=== PATIENT | male | born 1960 | race Caucasian/White ===

== ENCOUNTER → 2019-09-11 08:46 | Outpatient (BNVA) | payer BC, SELFPAY | PROVIDERS: Family Provider Nurse Practitioner; PCP Nurse Practitioner; Visit Provider Nurse Practitioner | DX: N20.0 Calculus of kidney (principal) | CPT/HCPCS: 74018; 81003 ==

== ENCOUNTER → 2019-11-05 11:00 | Outpatient (BNVA) | payer BC, SELFPAY | PROVIDERS: Family Provider Nurse Practitioner; PCP Nurse Practitioner; Visit Provider Nurse Practitioner | DX: N39.0 Urinary tract infection, site not specified (principal); R30.9 Painful micturition, unspecified; R30.0 Dysuria; R50.9 Fever, unspecified | CPT/HCPCS: 80053; 81000; 87081; 87400; 87880 ==

== ENCOUNTER 2019-11-15 23:54 | Observation (INO) | payer BC, SELFPAY ==
--- NOTE | 2019-11-15 22:18 | P.HP_ITS ---
Providers/Chief Complaint Admitting Physician: Ben Olmstead MD Primary Care Provider: Chiara Berrios APN Chief Complaint: GI Bleed & Melanotic Stool History of Present Illness Tim Peters is a 58 year old male who does not carry any significant past medical history went to [facility] for chief complaint of black tarry stool. He is stating that about a month ago he was treated for UTI with Bactrim, he has finished that course, he was in his usual state of health until this when he started noticing black/dark stools, regular consistency without diarrhea, he tried to change his diet but he kept noticing black stools, on Sunday he started experiencing dry heaves, excessive retching, noticed dark-colored emesis as well, cold sweats, he felt weak and lethargic and dizzy. Patient is stating that every time he was flushing his stools he would see fresh blood coming out of his dark stools. And he describes his hematemesis as gelatinous coffee-ground emesis. He has never experienced these kind of symptoms before, no history of hepatitis, peptic ulcer disease, he does not drink alcohol, does not use aspirin on daily basis, colonoscopy at age 48 was unremarkable as per the patient. No family history of colon cancer. Endorsing history of internal hemorrhoids. Diagnostics in the ER revealed sinus tachycardia heart rate 108, Blood pressure 110/77, patient afebrile, saturating well on room air White count 7 Hemoglobin 11.6 Platelets 411 Sodium 134 Potassium 4.1 Chloride 99 CO2 24 Calcium 8.7 BUN 27 Creatinine 0.8 AST 22 ALT 26 FOBT positive INR 1.0 PT 13.4 PTT 29.5 Magnesium 2.0 Lipase 32 Urinalysis unremarkable Chest x-ray unremarkable KUB: Nonspecific bowel gas pattern Review of Systems Const: Reports: fatigue; Denies: chills, body aches, change in appetite or malaise Eyes: Denies: change in vision ENMT: Denies: throat pain Card: Denies: chest pain, palpitations or irregular heart rhythm Resp: Denies: shortness of breath GI: Reports: abdominal pain, nausea, vomiting, vomiting blood, heartburn/indigestion and blood in stool; Denies: diarrhea or constipation : Denies: flank pain, difficulty urinating or urinary frequency Musc: Denies: neck pain Skin/Breast: Denies: rash or itching Neuro: Denies: headache Psych: Denies: anxiety or depression Endo: Denies: excessive urination Angus/Lymph: Denies: easy bruising All/Imm: Denies: hives Medications/Allergies Allergies Allergy/AdvReac Type Severity Reaction Status Date / Time tetanus and diphtheria Allergy high fever Verified 11/05/19 08:27 toxoids PFSH Acute PFSH: Medical History (Updated 11/16/19 @ 00:56 by Ben Olmstead MD) Amputation of finger Branchial cleft cyst Internal hemorrhoids Neck mass Normal colonoscopy Spondylolysis C6-C7 spondylosis Surgical History (Updated 11/15/19 @ 22:22 by Ben Olmstead MD) Status post excisional biopsy Family History (Updated 11/16/19 @ 00:56 by Ben Olmstead MD) Family/Other Cancer Mother had uterine cancer, father had bladder cancer, Social History (Updated 11/16/19 @ 00:57 by Ben Olmstead MD) Smoking and tobacco status: former smoker Quit status (tobacco): has quit using tobacco Former quit date comment: Quit smoking and smokeless tobacco 33 years ago, Alcohol intake: never Substance/Drug Use: never Household members: spouse and family Housing: House Physical Exam Narrative: EXAM NARRATIVE: Pleasant male sitting at the bedside without any active distress S1, S2 no signs of tachycardia heart failure Lungs are clear to auscultation Abdomen soft, nontender, nondistended, bowel sound present in all quadrants, no CVA tenderness EOMI, PERRLA No pallor or cyanosis or jaundice noticed Appropriate mood and affect No lower extremity edema ischemia gangrene or ulcer Neurologically nonfocal exam 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 fib no previous history of abnormal colonoscopy N.p.o. discontinue multivitamins Protonix IV 40 mg twice a day CBC in the morning, currently hemodynamically stable, no dehydration or orthostasis I would continue dextrose LR maintenance rate No urgent need of endoscopy or colonoscopy, would hold off on consulting general surgery at this point Kindly reevaluate in the morning Hematemesis after multiple episodes of dry heaves and retching Would keep Nadine-Hu tear in my differentials, no active hematemesis Liver enzymes not abnormal Nonalcoholic DVT prophylaxis: SCDs avoid anticoagulation N.p.o. Full code Attestations Medical Necessity Statement*: Anticipating discharge in less than 48 hours if hemoglobin stays stable currently needs monitoring for Hemoccult positive stool and hematemesis Time Spent in Patient Care: 50 Coding Level of Care Code Acute Customer Pricing Manager for Isabelle Millan Diagnoses Melanotic stools K92.1 Hematemesis K92.0
[2019-11-15 23:56] VITALS: BMI 30.5
--- NOTE | 2019-11-16 00:40 | CTR_ITS ---
PROCEDURE INFORMATION: Exam: CT Abdomen With Contrast Exam date and time: 11/16/2019 1:00 AM Age: 58 years old Clinical indication: Other: Blood in stool; Prior surgery; Surgery date: 6+ months; Surgery type: Appy; Additional info: Balck stool TECHNIQUE: Imaging protocol: Computed tomography images of the abdomen with intravenous contrast. Total DLP: 999.56 mGy-cm Radiation optimization: All CT scans at this facility use at least one of these dose optimization techniques: automated exposure control; mA and/or kV adjustment per patient size (includes targeted exams where dose is matched to clinical indication); or iterative reconstruction. Contrast material: OMNI 300; Contrast volume: 95 ml; Contrast route: IV; COMPARISON: No relevant prior studies available. FINDINGS: Liver: Normal. No mass. Gallbladder and bile ducts: Normal. No calcified stones. No ductal dilation. Pancreas: Normal. No ductal dilation. Spleen: Normal. No splenomegaly. Adrenals: Normal. No mass. Kidneys and ureters: A 3.8 mm nonobstructing calculus is seen within the left kidney. Stomach and bowel: There is a [place] configuration of the hepatic flexure of the colon. Diverticula are seen on the sigmoid colon. There are no inflammatory changes present to suggest diverticulitis. Appendix: Status post appendectomy. Intraperitoneal space: Unremarkable. No free air. No significant fluid collection. Lymph nodes: Unremarkable. No enlarged lymph nodes. Vasculature: Unremarkable. No abdominal aortic aneurysm. Bones/joints: Benign-appearing vertebral body hemangioma within L2. Soft tissues: Unremarkable. CT/CT abdomen w con* [id number] IMPRESSION: 1. Diverticulosis of the sigmoid colon without evidence of diverticulitis 2. [place] configuration of the hepatic flexure of the colon 3. Nonobstructing 3.8 mm left renal calculus Radiation Dose CTDIVOL = (mGy): DLP = 999.56 (mGy-cm)
[2019-11-16 00:47] VITALS: BP 105/68; PULSE 74; RESP 18; TEMP 37.2; O2SAT 98
[2019-11-16] MEDS: dextrose 5%-sod chloride 0.45% 1,000 ML 75 ML IV ×2 (00:49→13:51)
[2019-11-16] MEDS: pantoprazole 40 mg SDV IVP ×3 (00:49→23:53)
[2019-11-16] MEDS: iohexol 300 mg/mL 100 mL Btl IV (01:01)
[2019-11-16 04:00] VITALS: BP 112/65; PULSE 71; RESP 20; TEMP 36.5; O2SAT 98
[2019-11-16 05:34] LABS: Hematocrit 28.6 % (42.0-52.0); Hemoglobin 9.7 g/dL (11.7-16.6); Lymphocytes # 2.5 10^3/uL (0.8-4.8); Lymphocytes % 50.8 %; Mean Corpuscular HGB Conc 33.9 g/dL (30.0-36.0); Mean Corpuscular Hemoglobin 31.1 pg (28.0-34.0); Mean Corpuscular Volume 91.7 fL (80-94); Mean Platelet Volume 8.6 fL (7.4-10.4); Monocytes # 0.6 10^3/uL (0.2-0.9); Monocytes % 11.2 %; Neutrophils # 1.9 10^3/uL (1.8-7.7); Neutrophils % 37.8 %; Nucleated Red Blood Cells % 0 %; Platelet Count 303 10^3/cmm (130-400); Positive M 1; Red Blood Count 3.12 10^6/uL (4.1-5.3); Red Cell Distribution Width 12.1 % (12.1-15.1); White Blood Count 4.9 10^3/uL (4.0-10.0)
[2019-11-16 05:56] LABS: Lactic Acid level (Lactate) 0.9 mmol/L (0.5-2.2)
[2019-11-16 05:58] LABS: Anion Gap 11.7 (5-19); Blood Urea Nitrogen 19 mg/dL (8-23); Calcium 8.2 mg/dL (8.5-10.5); Carbon Dioxide 25 mmol/L (22-29); Chloride 103 mmol/L (98-107); Glomerular Filtration Rate 86.1 mL/min (90-130); Glucose 112 mg/dL (65-115); Osmolality Calculated 279 mOsm/kg (285-295); Potassium 3.7 mmol/L (3.5-5.1); Sodium 136 mmol/L (136-145)
[2019-11-16 06:24] LABS: Slide Review Slide Review Perform
[2019-11-16 08:00] VITALS: BP 114/75; PULSE 73; RESP 16; TEMP 36.6; O2SAT 98
[2019-11-16 11:28] VITALS: BP 112/13; PULSE 76; RESP 16; TEMP 36.9; O2SAT 98
--- NOTE | 2019-11-16 11:32 | PM.PN ---
Subjective Subjective: Interval history: last black stool early this morning. No episodes of hematemesis. Hb trend 9.7<--11.6 (4/4) <--baseline 15 from 08/2019 Medications: Reviewed: Yes Vitals/I&O/Wt Last Vital Signs Temp 98.5 F 11/16/19 11:28 Pulse 76 11/16/19 11:28 Resp 16 11/16/19 11:28 BP 112/13 11/16/19 11:28 Pulse Ox 98 11/16/19 11:28 11/15/19 11/16/19 11/16/19 22:59 06:59 14:59 Output Total 600 / 600 Balance -600 / -600 Weight last 48 hrs Weight 91.172 kg Physical Exam Narrative: EXAM NARRATIVE: GEN: Awake, alert and oriented, no acute distress CVS: S1S2 N RS: CTA B/L Abd: Soft, nt/nd , bs+ PIANO REFINISHER: no focal neuro deficits Data : 11/16/19 05:26 11/16/19 05:26 A&P Assessment and plan (1) Hematemesis: Status: Acute (2) Melanotic stools: Status: Acute (3) Anemia: Status: Acute Additional A&P Information # UGI bleed Last oniel early this morning no further hematemesis CT abdomen without any acute colitis Cdiff ordered due to Hb drop, Gen/surg consulted to assess for endoscopy Recent h/o being treated for UTI based on symptoms of dysuria, fever resolved within 2 days. However patient's UA from the time without evidence of infection. Per his PCP's note patient had URI symptoms at the time as well , flu and strep were negative then. He was not tested for COVID 19. Patient has no current URI symptoms and fever has resolved, therefore do not suspect active infection, however if previously had COVID, there is still potential for asymptomatic shedding at this time. While would not have ordinarily tested in this situation, given that he is under consideration for endoscopy and there is risk for aerosolization with upper airway procedures, will screen prior to procedure. Continue Protonix IV 40 mg twice a day monitor Hb and BP, reports some orthostasis DVT prophylaxis: SCDs avoid anticoagulation N.p.o. Full code Attestations Medical Necessity Statement*: needs close monitoring for management of UGI bleed Coding Level of Care Code Acute Sanitation Associate for g Fwd Diagnoses Hematemesis K92.0 Melanotic stools K92.1 Anemia D64.9
[2019-11-16 16:00] VITALS: BP 114/67; PULSE 76; RESP 18; TEMP 36.7; O2SAT 97
[2019-11-16 19:45] VITALS: BP 107/71; PULSE 72; RESP 18; TEMP 36.6; O2SAT 99
[2019-11-17] VITALS: BP 109/65; PULSE 70; RESP 17; TEMP 36.3; O2SAT 99
[2019-11-17] MEDS: dextrose 5%-sod chloride 0.45% 1,000 ML 75 ML IV (03:55)
[2019-11-17 04:00] VITALS: BP 102/65; PULSE 67; RESP 17; TEMP 36.5; O2SAT 98
[2019-11-17 07:47] VITALS: BP 111/65; PULSE 70; RESP 17; TEMP 36.4; O2SAT 98
[2019-11-17 08:00] LABS: Hematocrit 27.3 % (42.0-52.0); Hemoglobin 9.2 g/dL (11.7-16.6); Lymphocytes # 2.2 10^3/uL (0.8-4.8); Lymphocytes % 43.2 %; Mean Corpuscular HGB Conc 33.7 g/dL (30.0-36.0); Mean Corpuscular Hemoglobin 30.9 pg (28.0-34.0); Mean Corpuscular Volume 91.6 fL (80-94); Mean Platelet Volume 8.9 fL (7.4-10.4); Monocytes # 0.4 10^3/uL (0.2-0.9); Monocytes % 8.5 %; Neutrophils # 2.4 10^3/uL (1.8-7.7); Neutrophils % 47.3 %; Nucleated Red Blood Cells % 0 %; Platelet Count 352 10^3/cmm (130-400); Red Blood Count 2.98 10^6/uL (4.1-5.3); Red Cell Distribution Width 12.1 % (12.1-15.1); White Blood Count 5.1 10^3/uL (4.0-10.0)
[2019-11-17 08:16] LABS: Blood Urea Nitrogen 10 mg/dL (8-23); Calcium 8.2 mg/dL (8.5-10.5); Carbon Dioxide 25 mmol/L (22-29); Chloride 105 mmol/L (98-107); Glucose 110 mg/dL (65-115); Osmolality Calculated 283 mOsm/kg (285-295); Sodium 138 mmol/L (136-145)
[2019-11-17] MEDS: pantoprazole 40 mg SDV IVP (10:28)
[2019-11-17 10:33] VITALS: BP 103/68; BP 106/64; BP 110/68; PULSE 69; PULSE 80; PULSE 81
--- NOTE | 2019-11-17 11:32 | PM.DCS ---
Discharge Providers Date of Admission: 11/15/19 23:54 Date of Discharge: November 17, 2019 Attending Provider at Admission: Ben Olmstead MD Attending Provider at Discharge: Aliec Bear MD Primary Care Provider: Chiara Berrios APN Diagnoses at Discharge Discharge Diagnosis (1) Hematemesis: Status: Resolved (2) Melanotic stools: Status: Resolved (3) Anemia: Status: Resolved Reason for Visit Reason for Visit: Reason For Visit: GI Bleed & Melanotic Stool Hospital Course Discharge Summary: This is a 58-year-old male with no significant past medical history who presents the emergency room due to concerns for black tarry stools, and dark-colored emesis, with a negative colonoscopy at age 48, no family history of colon cancer, does have a history of internal hemorrhoids, no alcohol drinking, no aspirin use, but had received Toradol. Patient was admitted for upper GI bleed and melanotic stools, received IV hydration, IV Protonix, his hemoglobin did trend down from 15 to 9.2, his hemoglobin remained stable at 9.2, 24 hours before discharge, he did not have any more melanotic stools, nor did he have hematemesis or dark-colored vomit, he was doing well. Patient was discharged on Protonix 40 twice daily, with instructions to drink plenty of electrolyte balance fluids, avoid aspirin, avoid NSAIDs. The case was discussed with Dr. Delgado from surgery, who will plan on doing an elective endoscopy and colonoscopy in 6 weeks. Patient was instructed that if he were to feel lightheaded, dizzy, and/or recurrent melanotic stools or hematemesis or dark vomit come back to the emergency room. Patient also had COVID testing on admission due to concerns for recent history of upper respiratory tract infection, which was negative Patient also endorses that he recently was treated for urinary tract infection. His CT scan did show a nonobstructive 3.8 mm left renal colliculus.I advised patient that he does have a risk of passing this kidney stone, to monitor his urine output, urinary symptoms. I advised patient that if he were to develop another urinary tract infection, he should follow-up with his regular physician for a consideration for nephrolithiasis, and consideration for BPH and/or prostatitis as a source of his recurrent UTIs. Physical Exam Const: COMMON NORMALS: no apparent distress and oriented x3 HENMT: COMMON NORMALS: normocephalic HEAD & SCALP: normocephalic Neck/C-Spine: COMMON NORMALS: no JVD Resp: COMMON NORMALS: normal respiratory effort, no retractions, no use of accessory muscles and clear to auscultation bilaterally AUSCULTATION: clear to auscultation bilaterally Cardio: COMMON NORMALS: no JVD, regular rate, regular rhythm, S1 normal heart sound and S2 normal heart sound RATE: regular rate RHYTHM: regular rhythm HEART SOUNDS: S1 normal and S2 normal GI: COMMON NORMALS: normal to inspection, nondistended, normoactive bowel sounds, soft to palpation, non-tender, no hepatosplenomegaly, no masses and no bruits PALPATION: Yes soft and Yes no hepatosplenomegaly Extremity: COMMON NORMALS: normal capillary refill, no clubbing, cyanosis or edema, no calf tenderness and no pedal edema Neuro: COMMON NORMALS: oriented x3 Psych: COMMON NORMALS: mental status grossly normal Discharge Data Data Completed and Pending: Completed Studies During Hospitalization Category Date Time Status CT abdomen w con* [id number] Urgent Cat Scan 11/16/19 00:40 Completed Labs from last 24 hours 11/17/19 11/17/19 07:30 07:30 WBC 5.1 RBC 2.98 L Hgb 9.2 L Hct 27.3 L MCV 91.6 MCH 30.9 MCHC 33.7 RDW 12.1 Plt Count 352 MPV 8.9 Neut % (Auto) 47.3 Lymph % (Auto) 43.2 [place] % (Auto) 8.5 Eos % (Auto) 0.0 Baso % (Auto) 0.0 Neut # (Auto) 2.4 Lymph # (Auto) 2.2 [place] # (Auto) 0.4 Eos # (Auto) 0.0 Baso # (Auto) 0.0 Nucleated RBC % (a uto) 0 Nucleated RBCs # 0.0 Sodium 138 Potassium 4.0 Chloride 105 Carbon Dioxide 25 Anion Gap 12.0 BUN 10 Creatinine 0.7 GFR Calculation 115.0 Glucose 110 Calculated Osmolal ity 283 L Calcium 8.2 L Vitals: Last Vital Signs Temp 97.5 F L 11/17/19 07:47 Pulse 69 11/17/19 10:33 Resp 17 11/17/19 07:47 BP 106/64 11/17/19 10:33 Pulse Ox 98 11/17/19 07:47 Discharge Plan Discharge Patient Disposition: Home, Self-Care Condition: Stable Prescriptions: New Protonix 40 mg tablet,delayed release (DR/EC) 40 mg PO BID 30 Days Qty: 60 RF: 0 Continued multivitamin Tablet 1 tab PO QDAY RF: 0 ascorbic acid (vitamin C) 500 mg tablet 500 mg PO QDAY RF: 0 Discontinued ketorolac 30 mg/mL solution 60 mg IM ONCE Qty: 2 RF: 0 No Action Metamucil (sugar) Powder 1 tbsp PO BID RF: 0 Discharge Orders: Discharge Order (Routine); Ordered 11/17/19 Ordered By: Jovanny Fuentes Referrals: Rian Delgado MD [Physician] - 1 month (to schedule EGD/colon) Discharge Diet: GI Soft Discharge Activity: Resume usual activity Patient Instructions: Pantoprazole (By mouth), GI Bleeding, Gastrointestinal Bleeding (DC), Gastrointestinal Bleeding (GEN), Rectal Bleeding (DC), Rectal Bleeding (GEN), Iron Rich Diet (DC), Anemia (DC) Activity Restrictions/Additional Instructions: -Please use Protonix as prescribed for GI bleed -Please hydrate very well with electrolyte balance fluids such as Gatorade -Please avoid all nonsteroidal anti-inflammatory drugs such as ketorolac, aspirin, Aleve, naproxen etc. -Follow-up with Dr. Delgado in 2 weeks Discharge Date/Time: 11/17/19 16:59 Discharge Attestations Time Spent in Discharge Care*: less than 30 min Quality Metrics Clinical Quality Measures During this hospital stay, did patient experience: None Coding Level of Care Code Acute Avionics Engineer for g Fwd Exam Comprehensive Diagnoses Hematemesis K92.0 Melanotic stools K92.1 Anemia D64.9
[2019-11-17 12:00] VITALS: BP 112/68; PULSE 74; RESP 17; TEMP 36.5; O2SAT 98
[2019-11-17 12:12] LABS: INR 1.06 (0.8-1.2)
[2019-11-17 12:15] LABS: Alanine Aminotransferase 19 U/L (0-41); Albumin Level 3.5 g/dL (3.5-5.2); Alkaline Phosphatase 36 IU/L (40-130); Aspartate Amino Transferase 19 U/L (0-40); Globulin 2.6 g/dL (1.3-4.6); Total Bilirubin 0.2 mg/dL (0.15-1.2); Total Protein 6.1 g/dL (6.6-8.7)
--- NOTE | 2019-11-17 14:09 | P.CONIM_ITS ---
Providers/Reason For Consult Consulting Physican/Specialty*: Alice Bear MD Reason for Consult*: Melena Attending Physician: Alice Bear MD Primary Care Provider: Chiara Berrios APN History of Present Illness History of Present Illness Tim Peters is a 58 year old male who presented to the ER with 3-day history of black stools. Patient denies any abdominal pain nausea vomiting constipation or diarrhea. No similar episodes in the past. No history of peptic ulcer disease. His last colonoscopy was 10 years ago which was normal and is due for one this year. Patient states that the day before he presented to the ER he noticed fresh blood in stools. He states that since yesterday has not had any further episodes. He had recently been diagnosed with a UTI Review of Systems General: Reports: 10 or more systems reviewed and unremarkable except in HPI and below Meds/Allergies Home Medications and Allergies Home Medications Medication Instructions Recorded Confirmed Type ascorbic acid (vitamin C) 500 mg 500 mg PO QDAY 09/11/19 11/05/19 History tablet multivitamin 1 tab PO QDAY 09/11/19 11/05/19 History tamsulosin 0.4 mg capsule 0.4 mg PO QDAY #14 cap 09/11/19 11/05/19 Rx pantoprazole [Protonix] 40 mg PO BID 30 Days #60 tab 11/17/19 Rx Allergies Allergy/AdvReac Type Severity Reaction Status Date / Time tetanus and diphtheria Allergy high fever Verified 11/05/19 08:27 toxoids Current Medications Current Medications Generic Name Dose Route Start Last Admin Trade Name Freq PRN Reason Stop Dose Admin Dextrose/Sodium Chloride 1,000 mls @ 75 mls/hr 11/15/19 23:45 11/17/19 03:55 Dextrose 5%-Sod Chloride 0.45% IV 75 mls/hr .[id number] KAYLIE Administration Pantoprazole Sodium 40 mg 11/15/19 23:45 11/17/19 10:28 Protonix IVP 40 mg Q12H KAYLIE Administration PFSH Acute PFSH: Medical History Amputation of finger Branchial cleft cyst Internal hemorrhoids Neck mass Normal colonoscopy Spondylolysis C6-C7 spondylosis Surgical History Status post excisional biopsy Family History Family/Other Cancer Mother had uterine cancer, father had bladder cancer, Social History Smoking and tobacco status: former smoker Quit status (tobacco): has quit using tobacco Former quit date comment: Quit smoking and smokeless tobacco 33 years ago, Alcohol intake: never Household members: spouse and family Housing: House Vitals/I&O/Wt Last Vital Signs Temp 97.7 F 11/17/19 12:00 Pulse 74 11/17/19 12:00 Resp 17 11/17/19 12:00 BP 112/68 11/17/19 12:00 Pulse Ox 98 11/17/19 12:00 11/16/19 11/17/19 11/17/19 22:59 06:59 14:59 Intake Total 1000 / 1977.5 480 / 480 Output Total 700 / 1300 701 / 701 Balance 300 / 677.5 -221 / -221 Weight last 48 hrs Weight 201 lb Physical Exam Narrative: EXAM NARRATIVE: HEENT: Normocephalic Eye: Sclera /conjunctiva normal Respiratory and chest: Bilateral clear breath sounds on auscultation Cardiovascular: Normal S1 and S2 heart sounds Abdomen: Soft to palpation Neurological: Oriented to place person and time Skin: Intact, no lesions appreciated on gross exam Data Micro: Micro: Microbiology 11/16/19 12:51 C.difficile Toxin B Gene (PCR) - Fin al Stool A&P Assessment and plan (1) Melanotic stools: 58-year-old gentleman with melanotic stools currently hemodynamically stable and his repeat hemoglobin has remained the same. Plan for discharge later today on Protonix. Follow-up 6 weeks to schedule EGD and colonoscopy. Status: Acute Coding Level of Care Code Acute Entertainment Lawyer for Chg Fwd Diagnoses Melanotic stools K92.1
[2019-11-17 14:23] LABS: Coronavirus Lab Test PTC NOT DETECTED
[2019-11-17 14:35] VITALS: BP 112/68; PULSE 74; RESP 17; TEMP 36.5; O2SAT 98
[2019-11-17 14:42] LABS: Hematocrit 27.3 % (42.0-52.0); Hemoglobin 9.2 g/dL (11.7-16.6)
--- NOTE | 2019-11-17 16:56 | PC.NURSE ---
DISCHARGE SUMMARY Patient was given discharge instructions. follow up appointments made. vitals within patients normals. patient alert and oriented. transferred home by . prescription for CBC sent with patient to be drawn at pcp office. iv discontinued. patient information sent home with patient.
== END 2019-11-17 16:59 | disposition home or self-care (01) ==
PROVIDERS: Family Medicine; Surgery; Admitting Provider Internal Medicine; Family Provider Nurse Practitioner; PCP Nurse Practitioner; Visit Provider Student in an Organized Health Care Education/Training Program
DX: K92.1 Melena (principal); K92.0 Hematemesis; D64.9 Anemia, unspecified; Z87.891 Personal history of nicotine dependence
CPT/HCPCS: 12345; 36415; 74160; 80048; 80076; 83605; 85014; 85018; 85025; 85610; 87493; 87635; 96360; 96361; 96375; C9113; G0378; G0379; J7799; Q9967

== ENCOUNTER → 2019-11-19 11:34 | Outpatient (BNVA) | payer BC, SELFPAY | PROVIDERS: Family Provider Nurse Practitioner; PCP Nurse Practitioner; Visit Provider Family Medicine | DX: D64.9 Anemia, unspecified (principal); K92.0 Hematemesis | CPT/HCPCS: 85025 ==

== ENCOUNTER 2019-12-16 06:24 | Day surgery (SDC) | payer BC, SELFPAY ==
[2019-12-15 09:05] VITALS: BMI 28.8
[2019-12-16 06:40] VITALS: BP 114/77; PULSE 68; RESP 18; TEMP 36.3; O2SAT 99
[2019-12-16] MEDS: sodium chloride 0.9% 1,000 ML 30 ML IV (06:54)
--- NOTE | 2019-12-16 07:04 | W.PM.OPSUD ---
Surgery/Procedure H&P Update DATE OF PROCEDURE: December 16, 2019 DATE H&P PERFORMED: 11/27/19 H&P UPDATE INFORMATION: I have reviewed H&P completed within last 30 days, I have examined patient prior to procedure and No changes to prior documentation PREOP DIAGNOSIS: Melena, screening PLANNED PROCEDURE: Operation Date: 12/16/19 08:05 Proposed Procedures p EGD 79953 D64.9(Not Applicable) - Rian Delgado MD s Colonoscopy 82475 K92.2(Not Applicable) - Rian Delgado MD
--- NOTE | 2019-12-16 07:14 | ANES.PREANE2 ---
Pre-Anesthetic Assessment Pre-Anesthetic Assessment: Height/Weight: Height 1.73 m Weight 86.183 kg Temp Pulse Resp BP Pulse Ox 97.3 F L 68 18 114/77 99 12/16/19 06:40 12/16/19 06:40 12/16/19 06:40 12/16/19 06:40 12/16/19 06:40 Preop Diagnosis: Melena, screening Proposed Procedure: Operation Date: 12/16/19 08:05 Proposed Procedures p EGD 76972 D64.9(Not Applicable) - Rian Delgado MD s Colonoscopy 52698 K92.2(Not Applicable) - Rian Delgado MD Last intake: Intake Last Liquid Date 12/15/19 Last Liquid Time 20:00 Last Solid Date 12/15/19 Last Solid Time 20:00 Social: Social History: No alcohol and No tobacco Comment: former smoker Exam: Pre-Anes Outpt Exam: alert, oriented x 3, clear to auscultation bilaterally and regular rate & rhythm Airway: Submandibular: WNL Cervical ROM: WNL MP: 3 History/ROS: No significant history except as noted GI: Comments: GI Bleed Anesthetic Plan: ASA status: 2 Anesthesia: Anesthesia Evaluation and MAC Risk of > 500 ml blood loss (7ml/kg in children): Yes, adequate IV access and fluids planned Meds/Allergies Current Medications: Current Medications Generic Name Dose Route Start Last Admin Trade Name Freq PRN Reason Stop Dose Admin Sodium Chloride 1,000 mls @ 30 ml s/hr 12/16/19 06:00 12/16/19 06:54 Sodium Chloride 0.9% IV 30 mls/hr .Q24H KAYLIE Administration PFSH Anesthesia PFSH: Social History Smoking and tobacco status: former smoker Quit status (tobacco): has quit using tobacco Former quit date comment: Quit smoking and smokeless tobacco 33 years ago, Alcohol intake: never Household members: spouse and family Housing: House History of recent travel: No Data Anesthesia Cardiac Studies: No Data to Display
[2019-12-16 08:33] VITALS: BP 109/72; PULSE 78; RESP 18; TEMP 36.3; O2SAT 97
[2019-12-16 08:48] VITALS: BP 133/89; PULSE 56; RESP 16; O2SAT 100
--- NOTE | 2019-12-16 08:59 | ANE.PACU2 ---
 Inpatient post-anesthesia follow up: Airway intact: Yes Vital signs: Temperature 97.3 F Pulse Rate 56 Respiratory Rate 16 Blood Pressure 133/89 Pulse Oximetry 100 Oxygen Delivery Me thod Room Air Oxygen Flow Rate Fraction of Inspir ed Oxygen Hydration adequate: Yes Nausea and vomiting: No Mental status: Baseline
== END 2019-12-16 09:09 | disposition home or self-care (01) ==
PROVIDERS: Family Provider Nurse Practitioner; PCP Nurse Practitioner; Visit Provider Surgery
PROC: 0DJ08ZZ Inspection of Upper Intestinal Tract, Via Natural or Artificial Opening Endoscopic (ICD-10-PCS; CPT 43235; principal; 2019-12-16 08:00)
PROC: 0DJD8ZZ Inspection of Lower Intestinal Tract, Via Natural or Artificial Opening Endoscopic (ICD-10-PCS; CPT 45378; 2019-12-16 08:00)
DX: K92.1 Melena (principal); K29.80 Duodenitis without bleeding; K57.30 Diverticulosis of large intestine without perforation or abscess without bleeding; Z87.891 Personal history of nicotine dependence
CPT/HCPCS: 43239; 45378; 12345; 88305; J2704; J7030

== ENCOUNTER → 2020-07-01 08:20 | Outpatient (BNVA) | payer BC, SELFPAY | PROVIDERS: PCP Nurse Practitioner; Visit Provider Nurse Practitioner Family | DX: Z11.59 Encounter for screening for other viral diseases (principal); K42.9 Umbilical hernia without obstruction or gangrene | CPT/HCPCS: 87635 ==

== ENCOUNTER 2020-07-07 06:24 | Day surgery (SDC) | payer BC, SELFPAY ==
[2020-07-06 10:38] VITALS: BMI 29.6
[2020-07-07] VITALS (9 sets, daily range): BP systolic 117–140; BP diastolic 84–98; PULSE 65–88; RESP 14–22; TEMP 36.1–36.2; O2SAT 96–98
--- NOTE | 2020-07-07 06:48 | ANES.PREANE2 ---
Pre-Anesthetic Assessment Pre-Anesthetic Assessment: Height/Weight: Height 1.73 m Weight 88.451 kg Temp Pulse Resp BP Pulse Ox 97.1 F L 71 18 139/98 97 07/07/20 06:39 07/07/20 06:39 07/07/20 06:39 07/07/20 06:39 07/07/20 06:39 Preop Diagnosis: Umbilical hernia Proposed Procedure: Operation Date: 07/07/20 08:05 Proposed Procedures p open Umbilical Hernia Repair w/ possible Mesh 98513 k42.9(Not Applicable) - Rian Delgado MD Familial anesthetic complications: None Was Beta Allison taken within 24 hours: N/A Last intake: Intake Last Liquid Date 07/06/20 Last Liquid Time 20:00 Last Solid Date 07/06/20 Last Solid Time 20:00 Social: Social History: No alcohol and No tobacco Comment: former smoker Exam: Pre-Anes Outpt Exam: alert, oriented x 3, clear to auscultation bilaterally and regular rate & rhythm Airway: Cervical ROM: WNL MP: 2 Dentition: Other (pulled teeth) GI: Comments: hx GI bleed Anesthetic Plan: ASA status: 1 Anesthesia: MAC Risk of > 500 ml blood loss (7ml/kg in children): No PFSH Anesthesia PFSH: Medical History (Updated 06/22/20 @ 17:28 by Rian Delgado MD) 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 [place] in [place] Internal hemorrhoids Spondylolysis C6-C7 spondylosis Surgical History H/O esophagogastroduodenoscopy (12/16/19) Duodenitis History of appendectomy Status post colonoscopy (12/16/19) Diverticulosis-repeat in 10 years Status post excisional biopsy Status post flap graft right hand Family History Family/Other Cancer Mother had uterine cancer, father had bladder cancer, Denies family history of Anesthesia complication Bleeding disorder Social History Smoking and tobacco status: former smoker Quit status (tobacco): has quit using tobacco Former quit date comment: Quit smoking and smokeless tobacco 33 years ago, Alcohol intake: never Household members: spouse and family Housing: House History of recent travel: No Data Anesthesia Cardiac Studies: No Data to Display
[2020-07-07] MEDS: sodium chloride 0.9% 1,000 ML 30 ML IV (06:55)
--- NOTE | 2020-07-07 06:59 | W.PM.OPSUD ---
Surgery/Procedure H&P Update DATE OF PROCEDURE: July 07, 2020 DATE H&P PERFORMED: 06/22/20 H&P UPDATE INFORMATION: I have reviewed H&P completed within last 30 days, I have examined patient prior to procedure and No changes to prior documentation PREOP DIAGNOSIS: Umbilical hernia PLANNED PROCEDURE: Operation Date: 07/07/20 08:05 Proposed Procedures p open Umbilical Hernia Repair w/ possible Mesh 26634 k42.9(Not Applicable) - Rian Delgado MD
--- NOTE | 2020-07-07 09:30 | PM.OP ---
Operative Report Date of procedure: July 07, 2020 Pre-op Diagnosis: Umbilical hernia Post-op diagnosis: same Procedure Done: Open primary repair of umbilical hernia Specimens removed/disposition: None Surgeon: Rian Delgado Anesthesia: General Condition: stable Disposition: PACU Procedure: The patient was taken to the operating room and intubated under general anesthesia after IV antibiotic had been administered. The abdomen was prepped and draped in a sterile manner. A 2 cm infraumbilical curvilinear incision was made using a 15 blade, a hernial sac dissected out using electrocautery and dissection with hemostats. The hernial sac was opened and omentum was reduced into the peritoneal cavity. Interrupted sutures using 0 Vicryl was used to close the hernial defect without any tension. The subcutaneous tissue was approximated using 3-0 Vicryl and skin was closed using running subcuticular 4-0 Monocryl sutures. Surgical glue was applied and 10 mL of 0.5% Marcaine was infiltrated around the incision. A 2 x 2 gauze was then placed within the umbilicus and sterile dressings are applied. The patient was stable throughout the procedure.
[2020-07-07] MEDS: HYDROcodone-acetaminophen 5-325 mg Tablet 1 TAB PO (10:03)
== END 2020-07-07 10:13 | disposition home or self-care (01) ==
PROVIDERS: PCP Nurse Practitioner; Visit Provider Surgery
PROC: (CPT 49585; principal; 2020-07-07 08:05)
DX: K42.9 Umbilical hernia without obstruction or gangrene (principal); Z87.891 Personal history of nicotine dependence
CPT/HCPCS: 49585; 12345; J0690; J1100; J2250; J2370; J2405; J2704; J2710; J3010; J3490; J7030

== ENCOUNTER 2022-04-26 15:13 | Outpatient (CLI) | payer OTHER, SELFPAY ==
--- NOTE | 2022-04-26 15:45 | US_ITS ---
WS: [id number] ULTRASOUND ABDOMEN CLINICAL INFORMATION: R10.9 - Unspecified abdominal pain COMPARISON: None. FINDINGS: Liver Size: Normal. Craniocaudal length: 15.2 cm. Echogenicity: Normal. Surface nodularity: None. Mass (size and location): None. Bile ducts Intrahepatic ducts: Normal. Common bile duct diameter: 0.3 cm. Gallbladder Normal. Gallstones: None. Gallbladder sludge: None. Gallbladder wall thickening: None. Pericholecystic fluid: None. Sonographic Diehl sign: Absent. Pancreas Normal as visualized. Spleen Splenomegaly: None. Craniocaudal length: 11.3 cm. Right kidney: Normal. Hydronephrosis: None. Size: 9.9 cm x 4.5 cm x 5.8 cm Left kidney: Slight lobulation LEFT kidney likely incidental dromedary hump. Hydronephrosis: None. Size: 10.7 cm x 5.4 cm x 4.9 cm. Abdominal aorta and IVC Visualized portions are normal. Ascites: None. US/US abdomen complete* [id number] IMPRESSION: 1. Normal abdominal ultrasound.
== END 2022-04-26 15:14 | disposition home or self-care (01) ==
PROVIDERS: PCP Nurse Practitioner; Visit Provider Nurse Practitioner
DX: R10.9 Unspecified abdominal pain (principal)
CPT/HCPCS: 76700

== ENCOUNTER 2022-12-17 23:31 | Emergency (ER) | payer OTHER, SELFPAY ==
[2022-12-17 23:33] VITALS: BP 159/90; PULSE 87; RESP 16; TEMP 37.9; O2SAT 98; BMI 30.4
[2022-12-17] MEDS: sodium chloride 0.9% 1,000 ML 999 ML IV (23:52)
[2022-12-17] MEDS: ketorolac 30 mg/mL INJ 15 MG IVP (23:53)
[2022-12-17] MEDS: ondansetron 2 mg/ML SDV 2 mL 4 MG IVP (23:53)
[2022-12-17 23:59] VITALS: BP 161/102; PULSE 72; RESP 16; O2SAT 96
--- NOTE | 2022-12-18 00:09 | CTR_ITS ---
PROCEDURE INFORMATION: Exam: CT Abdomen And Pelvis Without Contrast Exam date and time: 12/18/2022 12:17 AM Age: 61 years old Clinical indication: Abdominal pain; Flank; Left; Additional info: Flank pain, HX of stones, flank pain, n/v TECHNIQUE: Imaging protocol: Computed tomography of the abdomen and pelvis without contrast. Radiation optimization: All CT scans at this facility use at least one of these dose optimization techniques: automated exposure control; mA and/or kV adjustment per patient size (includes targeted exams where dose is matched to clinical indication); or iterative reconstruction. REPORTING DATA: Count of CT and Cardiac NM exams in prior 12 months: This patient has received 0 known CTs and 0 known cardiac nuclear medicine studies in the 12 months prior to the current study. COMPARISON: 1. CT abdomen w con* [id number] 2019-11-16 01:08 2. CR XR KUB [id number] 2019-09-11 09:00 RADIATION DOSE METRICS: Total DLP (mGy-cm): 778.71 FINDINGS: Liver: Normal. No mass. Gallbladder and bile ducts: Normal. No calcified stones. No ductal dilation. Pancreas: Normal. No ductal dilation. Spleen: Normal. No splenomegaly. Adrenal glands: Normal. No mass. Kidneys and ureters: 7 x 9 mm obstructing mid left ureteral calculus causing moderate left hydronephrosis and renal swelling. Linear 1 x 4 mm right vesicoureteral junction calculus without hydroureter/hydronephrosis. Stomach and bowel: Unremarkable. No obstruction. No mucosal thickening. Appendix: No evidence of appendicitis. Intraperitoneal space: Unremarkable. No free air. No significant fluid collection. Vasculature: Partially left sided inferior vena cava. Lymph nodes: Unremarkable. No enlarged lymph nodes. Urinary bladder: Unremarkable as visualized. Reproductive: Mild prostate gland enlargement. Bones/joints: Mild lumbar degenerative disc and joint disease with mild stenosis. Soft tissues: Unremarkable. CT/CT kidney stone [id number] IMPRESSION: 1. 7 x 9 mm obstructing mid left ureteral calculus causing moderate left hydronephrosis and renal swelling. 2. Linear 1 x 4 mm right vesicoureteral junction calculus without hydroureter/hydronephrosis.
--- NOTE | 2022-12-18 00:12 | ED_ITS ---
HPI - Abdominal Pain General: Chief Complaint: Abdominal Pain Stated Complaint: abdomen pain Time Seen by Provider: 12/17/22 23:43 Source: patient and family Mode of arrival: ambulatory Limitations: no limitations History of Present Illness: Patient presents emergency department today accompanied by his for evaluation treatment of left-sided flank pain. Patient reports a history of kidney stones stating his last kidney stone was approximately 1 year ago. He denies ever having any lithotripsy or renal stents. He noticed onset of his discomfort early this morning with acute worsening around 10 AM. reports that several friends at [employer] told her that he was in the bathroom vomiting and rolling around on the floor. Patient has not felt fevered at home. He has been trying to push fluids but, feels like he is not getting much urinary output. 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 [facility] in [facility] Internal hemorrhoids Spondylolysis C6-C7 spondylosis Surgical History H/O esophagogastroduodenoscopy (12/16/19) Duodenitis History of appendectomy History of umbilical hernia repair Status post colonoscopy (12/16/19) Diverticulosis-repeat in 10 years Status post excisional biopsy Status post flap graft right hand Family History Family/Other Cancer Mother had uterine cancer, father had bladder cancer, Denies family history of Anesthesia complication Bleeding disorder Social History Smoking and tobacco status: former smoker Quit status (tobacco): has quit using tobacco Former quit date comment: Quit smoking and smokeless tobacco 33 years ago, Alcohol intake: never Substance/Drug Use: never Household members: spouse and family Housing: House Physical Exam Const: COMMON NORMALS: patient oriented x3 and alert; apparent distress (Patient is pleasant and social but obviously uncomfortable.) HENMT: COMMON NORMALS: normocephalic, atraumatic, hearing grossly normal bilaterally and moist oral mucous membranes HEAD & SCALP: normocephalic and atraumatic Eye: COMMON NORMALS: Equal, round and reactive pupils present, EOMs intact bilaterally and conjunctivae normal CONJUNCTIVA: Yes conjunctivae normal PUPIL: Yes Equal, round and reactive pupils present Neck/C-Spine: COMMON NORMALS: full ROM and no JVD Lymph: LYMPHATIC: no lymphadenopathy noted Resp: COMMON NORMALS: normal respiratory effort, No retractions, No use of accessory muscles and clear to auscultation bilaterally AUSCULTATION: clear to auscultation bilaterally Cardio: COMMON NORMALS: no JVD, regular rate and regular rhythm RATE: regular rate RHYTHM: regular rhythm Back/Pelvis: COMMON NORMALS: no thoracic nor lumbar tenderness and thoraco- lumbar ROM normal OTHER: Left-sided CVA tenderness Extremity: COMMON NORMALS: normal to inspection, full ROM and capillary refill normal Neuro: COMMON NORMALS: patient oriented x3 SENSORIUM/ORIENTATION: Yes alert Psych: COMMON NORMALS: mental status grossly normal, Normal thought process present, cooperative, normal affect and activity/motor behavior normal THOUGHT PROCESS: Normal thought process present Skin: COMMON NORMALS: no rashes or lesions noted and no wounds GENERAL SKIN EXAM: no rashes or lesions noted Course Vital Signs: Vital signs: Vital Signs Temperature 99.1 F 12/18/22 02:40 Pulse Rate 80 12/18/22 02:40 Respiratory Rate 16 12/18/22 02:40 Blood Pressure 123/72 12/18/22 02:40 Pulse Oximetry 96 12/18/22 02:40 Oxygen Delivery Me thod Room Air 12/17/22 23:33 MDM - Abdominal Pain Medical Decision Making Patient presents to the emergency department today for left flank pain which started early this morning and worsened around 10:00. Patient has had vomiting and presented today with low-grade fever. Patient's lab work is relatively stable. Urinalysis revealed no signs of any findings of bacteria or white blood cells. Patient was treated with fluids, Toradol, morphine and Zofran. Patient has not had a CT scan in several years so, did proceed on with a CT to evaluate for a kidney stone. Patient was found to have a 7 x 9 mm left mid ureteral stone resulting in hydronephrosis and renal swelling. Because of this finding I did reach out to urology and was able to speak with Dr. Martinez. He indicated that if the patient's urine showed no signs of any significant infection and, pain was able to be controlled, he would follow-up with the patient outpatient in the clinic. Patient indicated significant improvement of his pain after morphine. Patient is much more talkative, smiling, and even laughing. We discussed the importance of pushing his fluids. Patient was given [place] for home in addition to Flomax and more Zofran. He was given strict return precautions for continued or worsening vomiting or any uncontrollable pain. Request for follow-up with Dr. Martinez was sent to case management. Patient verbalized understanding and agreement to treatment plan. Differential Diagnosis Likely abdominal pain, calculus of kidney, constipation, diverticulitis, gastroenteritis and small bowel obstruction Lab Data 12/17/22 23:47 12/17/22 23:47 Labs/Radiology: Radiology Impressions Abdomen/Pelvis CT 12/18/22 00:09 IMPRESSION: 1. 7 x 9 mm obstructing mid left ureteral calculus causing moderate left hydronephrosis and renal swelling. 2. Linear 1 x 4 mm right vesicoureteral junction calculus without hydroureter/hydronephrosis. Laboratory Results WBC 12.1 10^3/uL (4.0-10.0) H 12/17/22 23: RBC 4.95 10^6/uL (4.1-5.3) 12/17/22 23:47 Hgb 15.2 g/dL (11.7-16.6) 12/17/22 23:47 Hct 43.4 % (42.0-52.0) 12/17/22 23: MCV 87.7 fl (80-94) 12/17/22 23:47 MCH 30.7 pg (28.0-34.0) 12/17/22 23:47 MCHC 35.0 g/dL (30.0-36.0) 12/17/22 23:47 RDW 12.0 % (12.1-15.1) L 12/17/22 23: Plt Count 282 10^3/cmm (130-400) 12/17/22 23:47 MPV 9.5 fL (7.4-10.4) 12/17/22 23: Neut % (Auto) 78.8 % 12/17/22 23:47 Lymph % (Auto) 13.5 % 12/17/22 23:47 [place] % (Auto) 6.0 % 12/17/22 23:47 Eos % (Auto) 0.7 % 12/17/22 23:47 Baso % (Auto) 0.7 % 12/17/22 23:47 Neut # (Auto) 9.56 10^3/uL (1.8-7.7) H 12/17/22 23:47 Lymph # (Auto) 1.6 10^3/uL (0.8-4.8) 12/17/22 23:47 [place] # (Auto) 0.7 10^3/uL (0.2-0.9) 12/17/22 23:47 Eos # (Auto) 0.1 10^3/uL (0.0-0.8) 12/17/22 23:47 Baso # (Auto) 0.1 10^3/uL (0.0-0.1) 12/17/22 23:47 Nucleated RBC % (auto) 0 % 12/17/22 23:47 Nucleated RBCs # 0.0 /100WBC 12/17/22 23:47 ESR 16 mm/hr (0-10) H 12/17/22 23:47 Sodium 132 mmol/L (136-145) L 12/17/22 23:47 Potassium 3.7 mmol/L (3.5-5.1) 12/17/22 23:47 Chloride 96 mmol/L (98-107) L 12/17/22 23:47 Carbon Dioxide 23 mmol/L (22-29) 12/17/22 23:47 Anion Gap 16.7 (5-19) 12/17/22 23:47 BUN 12 mg/dL (8-23) 12/17/22 23:47 Creatinine 1.2 mg/dL (0.7-1.2) 12/17/22 23:47 GFR Calculation 61.1 mL/min (90-130) L 12/17/22 23:47 Glucose 104 mg/dL (65-115) 12/17/22 23:47 Calculated Osmolality 274 mOsm/kg (285-295) L 12/17/22 23:47 Calcium 8.8 mg/dL (8.5-10.5) 12/17/22 23:47 Total Bilirubin 0.7 mg/dL (0.15-1.2) 12/17/22 23:47 AST 27 U/L (0-40) 12/17/22 23:47 ALT 21 U/L (0-41) 12/17/22 23:47 Alkaline Phosphatase 55 U/L (40-130) 12/17/22 23:47 C-Reactive Protein 12.0 mg/L (0.0-4.9) H 12/17/22 23:47 Total Protein 7.4 g/dL (6.6-8.7) 12/17/22 23:47 Albumin 4.2 g/dL (3.5-5.2) 12/17/22 23:47 Globulin 3.2 g/dL (1.3-4.6) 12/17/22 23:47 Urine Color Light yellow (Yellow) 12/18/22 00:05 Urine Appearance Clear (CLEAR) 12/18/22 00:05 Urine pH 7 (5-7) 12/18/22 00:05 Ur Specific [place] 1.005 (1.005-1.030) 12/18/22 00:05 Urine Protein Neg (Negative) 12/18/22 00:05 Urine Glucose (UA) Norm (Normal) 12/18/22 00:05 Urine Ketones Negative (Negative) 12/18/22 00:05 Urine Blood 2+ (Negative) H 12/18/22 00:05 Urine Nitrate Negative (Negative) 12/18/22 00:05 Urine Bilirubin Neg (Negative) 12/18/22 00:05 Urine Urobilinogen Norm mg/dL (Negative) 12/18/22 00:05 Ur Leukocyte Esterase Negative (Negative) 12/18/22 00:05 Urine RBC 5-10 /hpf (0-2) H 12/18/22 00:05 Urine WBC 0-4 /hpf (0-5) H 12/18/22 00:05 Ur Squamous Epith Cells 0-4 /hpf (0-5) H 12/18/22 00:05 Amorphous Sediment Not Reportable 12/18/22 00:05 Urine Bacteria None /hpf (NONE) 12/18/22 00:05 Discharge Plan Discharge Patient Disposition: Home Clinical Impression: Hydronephrosis with ureteral calculus Condition: Stable Prescriptions: New tamsulosin 0.4 mg capsule 0.4 mg PO DAILY Qty: 10 0RF ondansetron 4 mg tablet,disintegrating 4 mg PO Q8H 5 Days Qty: 15 0RF No Action ascorbic acid (vitamin C) 500 mg tablet 500 mg PO QDAY dexamethasone sodium phosphate 10 mg/mL solution 10 mg IM ONCE Qty: 1 0RF doxycycline hyclate 100 mg capsule 100 mg PO BID 7 Days Qty: 14 0RF prednisone 20 mg tablet 20 mg PO DAILY 5 Days Qty: 5 0RF Metamucil 3.4 gram/5.4 gram Powder 1 tbsp PO BID Discharge Orders: Discharge ED (Routine); Ordered 12/18/22 Ordered By: Spring Sellers Referrals: Chiara Berrios FNP [Primary Care Provider] - Discharge Diet: As Directed Discharge Activity: Increase activity as tolerated Patient Instructions: Ureteral Stones (ED) Activity Restrictions/Additional Instructions: CT examination confirms a 7 x 9 mm stone in your left mid ureter. It is causing a backup of fluid into your kidney causing hydronephrosis/swelling of the kidney. You do have a slightly decreased kidney function on lab work today but, do encourage you to increase your clear fluid intake as this can help with this finding. After speaking with Dr. Martinez with urology, since there is no significant findings of infection in your urine and, pain was able to be contr olled with narcotic pain medication, we will discharge you to have follow-up with his clinic. I have requested our hospice case manager get you in the urology clinic for this [id number] should hear something later today. We are providing you continued pain management, antinausea medication, and Flomax. If for any reason you spike a fever, your pain is not able to be controlled or, you continue to have vomiting without ability to tolerate other medications or fluids you need to return back here to the emergency department. Coding Level of Care Code ED Admitting Supervisor for Isabelle Millan
[2022-12-18 00:24] LABS: Basophils # 0.1 10^3/uL (0.0-0.1); Basophils % 0.7 %; Eosinophils # 0.1 10^3/uL (0.0-0.8); Eosinophils % 0.7 %; Hematocrit 43.4 % (42.0-52.0); Hemoglobin 15.2 g/dL (11.7-16.6); Lymphocytes # 1.6 10^3/uL (0.8-4.8); Lymphocytes % 13.5 %; Mean Corpuscular Hemoglobin 30.7 pg (28.0-34.0); Mean Corpuscular Volume 87.7 fl (80-94); Mean Platelet Volume 9.5 fL (7.4-10.4); Monocytes # 0.7 10^3/uL (0.2-0.9); Neutrophils # 9.56 10^3/uL (1.8-7.7); Neutrophils % 78.8 %; Nucleated Red Blood Cells % 0 %; Platelet Count 282 10^3/cmm (130-400); Red Blood Count 4.95 10^6/uL (4.1-5.3); White Blood Count 12.1 10^3/uL (4.0-10.0)
[2022-12-18 00:29] LABS: Alanine Aminotransferase 21 U/L (0-41); Albumin Level 4.2 g/dL (3.5-5.2); Alkaline Phosphatase 55 U/L (40-130); Anion Gap 16.7 (5-19); Aspartate Amino Transferase 27 U/L (0-40); Blood Urea Nitrogen 12 mg/dL (8-23); Calcium 8.8 mg/dL (8.5-10.5); Carbon Dioxide 23 mmol/L (22-29); Chloride 96 mmol/L (98-107); Globulin 3.2 g/dL (1.3-4.6); Glomerular Filtration Rate 61.1 mL/min (90-130); Glucose 104 mg/dL (65-115); Osmolality Calculated 274 mOsm/kg (285-295); Potassium 3.7 mmol/L (3.5-5.1); Sodium 132 mmol/L (136-145); Total Bilirubin 0.7 mg/dL (0.15-1.2); Total Protein 7.4 g/dL (6.6-8.7)
[2022-12-18 00:30] LABS: Erythrocyte Sedimentation Rate 16 mm/hr (0-10)
[2022-12-18] MEDS: morphine 4 mg/mL SDV 1 mL IVP (00:47)
[2022-12-18 00:48] VITALS: BP 165/100; PULSE 71; RESP 16; O2SAT 98
[2022-12-18 01:19] VITALS: BP 150/88; PULSE 74; RESP 16; TEMP 37.3; O2SAT 98
[2022-12-18 01:21] LABS: Urine Appearance Clear (CLEAR)
[2022-12-18 01:22] LABS: Add Urine Microscopic? YES; Bilirubin Urine Neg (Negative); Blood Urine 2+ (Negative); Glucose Urine UA Norm (Normal); Ketones Urine Negative (Negative); Leukocyte Esterase Urine Negative (Negative); Nitrate Urine Negative (Negative); Protein Urine Neg (Negative); Specific Gravity, Urine 1.005 (1.005-1.030); Urine Color Light yellow (Yellow); Urobilinogen Urine Norm (Negative); pH Urine 7 (5-7)
[2022-12-18] MEDS: sodium chloride 0.9% 1,000 ML 999 ML IV (01:29)
[2022-12-18 01:31] VITALS: BP 123/72; PULSE 80; RESP 16; O2SAT 96
[2022-12-18 01:32] LABS: Squamous Epithelial Cell Urine 0-4 /hpf (0-5); WBC Urine 0-4 /hpf (0-5)
[2022-12-18] MEDS: HYDROcodone-acetaminophen 5-325 mg Tablet 1 TAB PO (02:13)
[2022-12-18] MEDS: ondansetron 2 mg/ML SDV 2 mL 4 MG IVP (02:13)
[2022-12-18] MEDS: tamsulosin 0.4 mg Capsule PO (02:13)
[2022-12-18 02:40] VITALS: BP 123/72; PULSE 80; RESP 16; TEMP 37.3; O2SAT 96
--- NOTE | 2022-12-18 08:39 | DCPLANNER ---
Addendum entered by Sugey Tamayo 12/19/22 11:05: Patient had a follow up appointment scheduled for 12.19.22 at urology - patient did attend appointment. Original Note: resource development manager had message to schedule a follow up appointment for patient with urology. resource development manager sent patients information to the front office staff at urology. Patients information will be printed and reviewed. Clinic will call patient with appointment information.
== END 2022-12-18 02:41 | disposition home or self-care (01) ==
PROVIDERS: Emergency Provider Physician Assistant; PCP Nurse Practitioner
DX: N13.2 Hydronephrosis with renal and ureteral calculous obstruction (principal); Z87.891 Personal history of nicotine dependence
CPT/HCPCS: 74176; 80053; 81001; 85025; 85651; 86140; 96361; 96374; 96375; 99285; J1885; J2270; J2405; J7030

== ENCOUNTER 2022-12-19 09:47 | Outpatient (CLI) | payer OTHER, SELFPAY ==
--- NOTE | 2022-12-19 09:55 | XR_ITS ---
WS: [id number] KUB, AP view, 12/19/2022 Clinical Data: STONES Comparison: CT abdomen pelvis, 12/18/2022 KUB, 09/11/2019 Findings: The 1.2 cm proximal left ureteral calculus adjacent to the left L3 transverse process. No abnormal intraabdominal masses are seen. There is no dilatated small bowel or evidence of obstruct ion. Fecal material obscures the right kidney. XR/XR KUB [id number] Impression: Proximal left ureteral calculus.
== END 2022-12-19 09:48 | disposition home or self-care (01) ==
LOC: RAD 09:51
PROVIDERS: PCP Nurse Practitioner; Visit Provider Urology
DX: N20.1 Calculus of ureter (principal)
CPT/HCPCS: 74018; 81003

== ENCOUNTER 2022-12-25 05:36 | Day surgery (SDC) | payer OTHER, SELFPAY ==
[2022-12-22 12:24] VITALS: BMI 30.4
[2022-12-25] VITALS (8 sets, daily range): BP systolic 111–134; BP diastolic 77–85; PULSE 65–75; RESP 16–18; TEMP 36.1–36.4; O2SAT 96–99
--- NOTE | 2022-12-25 05:42 | XRR_ITS ---
PROCEDURE INFORMATION: Exam: XR Abdomen Exam date and time: 12/25/2022 5:47 AM Age: 62 years old Clinical indication: Screening exam; Other: Preop left eswl; Prior surgery; Surgery date: 6+ months; Surgery type: Hernia repair. Appy. TECHNIQUE: Imaging protocol: Radiologic exam of the abdomen. Views: Frontal supine view of the abdomen. 1 View. COMPARISON: CR XR KUB [id number] 12/19/2022 10:42 AM FINDINGS: Gastrointestinal tract: Normal. No bowel dilation. Organs: Left-sided urolithiasis unchanged in position from comparison. Bones/joints: Unremarkable. XR/XR KUB [id number] IMPRESSION: Left-sided urolithiasis redemonstrated. No change in position.
[2022-12-25] MEDS: sodium chloride 0.9% 1,000 ML 30 ML IV (06:13)
--- NOTE | 2022-12-25 06:48 | ANES.PREANE2 ---
Pre-Anesthetic Assessment Height/Weight: Height 1.73 m Weight 90.718 kg Temp Pulse Resp BP Pulse Ox O2 Del Method 97.5 F L 68 16 111/78 99 Room Air 12/25/22 06:07 12/25/22 06:07 12/25/22 06:07 12/25/22 06:07 12/25/22 06:07 12/25/22 06:07 Preop Diagnosis: Large left proximal ureteral stone Operation Date: 12/25/22 07:00 Proposed Procedures p CYSTOSCOPY LEFT: STENT EXTRACORPOREAL SHOCKWAVE LITHOTRIPSY [id number], N13.2(Not Applicable) - Rocky Martinez MD s Ureteral Stent Placement(Left) - MD virginia Goodrich ESWL(Left) - Rocky Martinez MD Familial anesthetic complications: None Was Beta Allison taken within 24 hours: N/A Was Clonidine taken within 24 hours: N/A Last intake: Intake Last Liquid Date 12/24/22 Last Liquid Time 22:00 Last Solid Date 12/23/22 Last Solid Time 12:00 Social No alcohol and No tobacco Exam alert, oriented x 3, clear to auscultation bilaterally and regular rate & rhythm Airway Mallampati: Class II Dentition: full History/ROS No significant complaints Anesthetic Plan ASA status: 2 Anesthesia: General Risk of > 500 ml blood loss (7ml/kg in children): No Medications/Allergies Home Medications Medication Instructions Recorded Confirmed Last Taken Type ascorbic acid (vitamin C) 500 mg 500 mg PO QDAY 09/11/19 12/25/22 12/23/22 History tablet psyllium husk 3.4 gram/5.4 gram 1 tbsp PO BID 12/15/19 12/25/22 12/23/22 History oral powder (Metamucil) tamsulosin 0.4 mg capsule 0.4 mg PO DAILY #10 caps 12/18/22 12/25/22 12/23/22 Rx hydrocodone 5 mg-acetaminophen 325 1 tab PO BID PRN Pain 12/19/22 12/25/22 12/23/22 History mg tablet multivitamin 1 tab PO DAILY 12/19/22 12/25/22 12/23/22 History ondansetron 4 mg disintegrating 4 mg PO Q8H PRN Nausea 12/22/22 12/25/22 Unknown History tablet Allergies Allergy/AdvReac Type Severity Reaction Status Date / Time tetanus and diphtheria Allergy high fever Verified 12/22/22 12:22 toxoids Current Medications Generic Name Dose Route Start Last Admin Trade Name Yang PRN Reason Stop Dose Admin Sodium Chloride 1,000 mls @ 30 mls/hr 12/25/22 05:45 12/25/22 06:13 Sodium Chloride 0.9% IV 12/26/22 05:44 30 mls/hr .Q24H KAYLIE Administration PFSH Anesthesia Medical History 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 [facility] [place] Internal hemorrhoids Spondylolysis C6-C7 spondylosis Surgical History H/O esophagogastroduodenoscopy (12/16/19) Duodenitis History of appendectomy History of umbilical hernia repair Status post colonoscopy (12/16/19) Diverticulosis-repeat in 10 years Status post excisional biopsy Status post flap graft right hand Family History Family/Other Cancer Mother had uterine cancer, father had bladder cancer, Father , DEIED AT AGE 83 Cancer BLADDER Mother , AT AGE 78 Pulmonary fibrosis Denies family history of Anesthesia complication Bleeding disorder Social History Smoking and tobacco status: former smoker Quit status (tobacco): has quit using tobacco Former quit date comment: Quit smoking and smokeless tobacco 33 years ago, Alcohol intake: never Substance/Drug Use: never Household members: spouse and family Housing: House Marital status: Current occupational status: employed Data Anesthesia Cardiac Studies: No Data to Display
--- NOTE | 2022-12-25 06:57 | W.PM.OPSUD ---
Surgery/Procedure H&P Update DATE OF PROCEDURE: December 25, 2022 DATE H&P PERFORMED: 12/19/22 H&P UPDATE INFORMATION: I have reviewed H&P completed within last 30 days, I have examined patient prior to procedure, No changes to prior documentation and H&P is in [facility] EMR on date indicated CHANGES TO PREVIOUS DOCUMENTATION: Same position as it was previously Some intermittent pain but not severe. Answered questions this morning. Proceed as scheduled PREOP DIAGNOSIS: Large left proximal ureteral stone PLANNED PROCEDURE: Operation Date: 12/25/22 07:00 Proposed Procedures p CYSTOSCOPY LEFT: STENT EXTRACORPOREAL SHOCKWAVE LITHOTRIPSY [id number], N13.2(Not Applicable) - Rocky Martinez MD s Ureteral Stent Placement(Left) - Rocky Martinez MD s ESWL(Left) - Rocky Martinez MD
--- NOTE | 2022-12-25 07:00 | P.OP_ITS ---
Operative Report Date of procedure: December 25, 2022 Pre-op diagnosis: Large left proximal ureteral stone Post-op diagnosis: Large left proximal ureteral stone Procedure done: Cystoscopy, left ureteral stent placement LEFT: Extracorporeal shockwave lithotripsy, left proximal ureteral stone Implants: Left ureteral stent Specimens removed/disposition: None Pathology: none Surgeon: Juan Associate Manager Affiliate Marketing: [place] lithotripsy Supervisor Warping Department Estimated blood loss: None Urine output: Not measured Complications: None Findings: Anesthesia: General Condition: Stable Disposition: PACU Intraoperative findings: * Easily focused upon and treated with 2500 shocks with excellent change. * 7 Guamanian by 28 cm double-pigtail stent left indwelling. No string. * Is very well Brief History: Fran is a very pleasant 62-year-old white male recently diagnosed with a large obstructing left proximal ureteral stone that showed no evidence of progress. He had fairly significant obstructive changes on CT scan. No clear evidence of UTI and no clinical symptoms of it. Ultimately he chose to proceed with ESWL plus stent for attempt at definitive treatment of the stone. Did discuss potential for endoscopy if retrograde access to the upper tract obtained with passage of a flexible tip guidewire. Procedure: Routine preoperative evaluation examination and obtaining of informed consent he was taken to the operating suite on 12/25/2022 where general anesthesia was administered without difficulty after appropriate timeout was performed, SCDs confirmed to be functioning, preoperative antibiotics administered, beta-terri protocol confirmed. Prepped and draped in the usual sterile fashion in dorsolithotomy position pain careful attention to avoiding pressure points. 21 Guamanian cystoscope with 30 degree lens was introduced into the urethral meatus and advanced into the bladder without difficulty. The bladder was systematically examined and was found to be normal. No stones. A flexible tip guidewire was then advanced up the left ureter bypassing the stone and curling in the area of the upper pole calyx. A 7 [place] by 28 cm double-pigtail stent without string was easily advanced up the wire passed the stone into the renal pelvis. Stent position was confirmed via fluoroscopy and cystoscopy to be appropriate. He was then repositioned in supine position on the Dornier unit such that the stone was located at the focal point utilizing biplanar fluoroscopy. Shockwave was initiated with the the shock head positioned posteriorly. Stone was easily focused upon. Patient was placed in slight Trendelenburg. Shockwave therapy was initiated and intensity of 1 and over the case advanced and intensity of 4. Rate was 60 until there was dramatic change identified in which point it was increased to 80. A 3-minute pause was conducted after about 300 shocks. Shock had remained posteriorly throughout the procedure. Focal point was adjusted as needed. RESULTS: * Excellent change. Could not see any substantial fragments remaining at the completion of the procedure. Most of what was left appeared to be sand and very very small particles. * Total number of shocks: 2500 * Stent left indwelling. He tolerated the procedure well without complications and was awakened in the operating room and returned to the recovery room in stable condition. PLANS: 1. Anticipate discharge from outpatient surgery 2. Follow-up on 01/08/2023 with [facility] possible cystoscopy stent removal
[2022-12-25] MEDS: levofloxacin-dextrose 5 % 500 MG/100 ML PREMIX 100 MG IV (07:07)
--- NOTE | 2022-12-25 15:25 | ANE.PACU2 ---
Inpatient post-anesthesia follow up: Airway intact: Yes Vital signs: Temperature 97 F Pulse Rate 65 Respiratory Rate 18 Blood Pressure 123/79 Pulse Oximetry 98 Oxygen Delivery Me thod Room Air Oxygen Flow Rate Fraction of Inspir ed Oxygen Hydration adequate: Yes Nausea and vomiting: No Pain level: 1 Mental status: Baseline
== END 2022-12-25 09:31 | disposition home or self-care (01) ==
PROVIDERS: PCP Nurse Practitioner; Visit Provider Urology
PROC: 0TJB8ZZ Inspection of Bladder, Via Natural or Artificial Opening Endoscopic (ICD-10-PCS; CPT 52000; principal; 2022-12-25 07:00)
PROC: (CPT 50605; 2022-12-25 07:00)
PROC: (CPT 50590; 2022-12-25 07:00)
DX: N13.2 Hydronephrosis with renal and ureteral calculous obstruction (principal); Z87.891 Personal history of nicotine dependence; Z79.891 Long term (current) use of opiate analgesic
CPT/HCPCS: 50590; 52332; 74018; J0330; J1100; J1170; J1956; J2370; J2405; J2704; J2710; J3010; J3490; J7030

== ENCOUNTER 2023-01-09 12:36 | Outpatient (CLI) | payer OTHER, SELFPAY ==
--- NOTE | 2023-01-09 12:48 | XR_ITS ---
WS: [id number] Exam: XR KUB [id number] Date/Time of Exam: 01/09/2023 12:50 PM Reason For Exam: STONES Comparison 12/25/2022. No bowel obstruction or free air. No sign of organ enlargement. A left-sided ureteral stent catheter is in place appearing to be in appropriate location. No calcifications projected over the region of t he kidneys. Regional bony elements are intact. XR/XR KUB [id number] IMPRESSION: 1. No acute abdominal finding. 2. Left-sided ureteral stent catheter appearing to be in satisfactory location.
--- NOTE | 2023-02-06 13:25 | PC.SOCIAL ---
Patient returns call and does not wish to follow up with urology at this time.
== END 2023-01-09 12:37 | disposition home or self-care (01) ==
PROVIDERS: PCP Nurse Practitioner; Visit Provider Urology
DX: N13.2 Hydronephrosis with renal and ureteral calculous obstruction (principal); Z96.0 Presence of urogenital implants
CPT/HCPCS: 74018

== ENCOUNTER → 2023-01-12 13:29 | Outpatient (BNVA) | payer OTHER, SELFPAY | PROVIDERS: PCP Nurse Practitioner; Visit Provider Urology | DX: N20.9 Urinary calculus, unspecified (principal) | CPT/HCPCS: 82365; 88300 ==

== ENCOUNTER 2023-02-06 00:54 | Emergency (ER) | payer OTHER, SELFPAY ==
--- NOTE | 2023-02-06 00:55 | CTR_ITS ---
PROCEDURE INFORMATION: Exam: CT Abdomen And Pelvis Without Contrast Exam date and time: 02/06/2023 1:49 AM Age: 62 years old Clinical indication: Abdominal pain; Flank; Right; Additional info: Right flank pain TECHNIQUE: Imaging protocol: Computed tomography of the abdomen and pelvis without contrast. Radiation optimization: All CT scans at this facility use at least one of these dose optimization techniques: automated exposure control; mA and/or kV adjustment per patient size (includes targeted exams where dose is matched to clinical indication); or iterative reconstruction. REPORTING DATA: Count of CT and Cardiac NM exams in prior 12 months: This patient has received [address] and 0 known cardiac nuclear medicine studies in the 12 months prior to the current study. COMPARISON: CT kidney stone [id number] 12/18/2022 12:17 AM RADIATION DOSE METRICS: Total DLP (mGy-cm): 739.58 FINDINGS: Lungs: Lung bases are clear. Diaphragm: There is a small sliding-type hiatal hernia. Liver: The liver is normal. Gallbladder and bile ducts: The gallbladder is normal. There is no biliary dilation. Pancreas: The pancreas is unremarkable. Spleen: The spleen is unremarkable. Adrenal glands: The adrenal glands are unremarkable. Kidneys and ureters: Moderate right hydronephrosis and diffuse hydroureter. 5 x 3 x 3 mm stone at the right ureterovesical junction within the bladder wall. The left kidney and ureter are unremarkable. Stomach and bowel: The stomach is unremarkable. The small bowel is nondilated. There is mild sigmoid colonic diverticulosis without evidence of diverticulitis. Appendix: The appendix is not visible. Intraperitoneal space: There is no free air or significant intraperitoneal free fluid. 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 Lymph nodes: Unremarkable. No enlarged lymph nodes. Urinary bladder: Bladder contours are normal. There is a 5 x 3 x 3 mm stone within the bladder wall at the right ureterovesical junction. Reproductive: The prostate and seminal vesicles are unremarkable. Bones/joints: Bones are unremarkable. Soft tissues: The abdominal wall is intact. CT/CT kidney stone [id number] IMPRESSION: 1. 5 x 3 x 3 mm obstructive stone within the bladder wall at the right ureterovesical junction producing moderate hydronephrosis. 2. No intrarenal stones. 3. Incidental findings above.
--- NOTE | 2023-02-06 00:57 | ED_ITS ---
HPI - Abdominal Pain General: Chief Complaint: Urogenital-Male Stated Complaint: right flank pain Time Seen by Provider: 02/06/23 00:55 History of Present Illness: 62-year-old male patient comes in today with complaints of right flank pain radiating to the groin. Patient has a history of renal stones. Patient reports pain is similar to prior renal stone. Patient had 1 lasted 11 December. Patient reports about 730 this evening started having discomfort that has worsened throughout the night. Patient appears in moderate to severe pain. Patient reports nausea/vomiting. 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 [facility] [place] Internal hemorrhoids Spondylolysis C6-C7 spondylosis Urolithiasis Surgical History H/O esophagogastroduodenoscopy (12/16/19) Duodenitis History of appendectomy History of umbilical hernia repair Status post colonoscopy (12/16/19) Diverticulosis-repeat in 10 years Status post excisional biopsy Status post flap graft right hand Family History Family/Other Cancer Mother had uterine cancer, father had bladder cancer, Father , DEIED AT AGE 83 Cancer BLADDER Mother , AT AGE 78 Pulmonary fibrosis Denies family history of Anesthesia complication Bleeding disorder Social History Smoking and tobacco status: former smoker Quit status (tobacco): has quit using tobacco Former quit date comment: Quit smoking and smokeless tobacco 33 years ago, Alcohol intake: never Substance/Drug Use: never Household members: spouse and family Housing: House Marital status: Current occupational status: employed Physical Exam Const: COMMON NORMALS: alert HENMT: COMMON NORMALS: normocephalic HEAD & SCALP: normocephalic Neck/C-Spine: COMMON NORMALS: full ROM Chest: COMMONS NORMALS: normal palpation of entire chest wall Resp: COMMON NORMALS: normal respiratory effort Cardio: COMMON NORMALS: regular rate RATE: regular rate : BLADDER/KIDNEY EXAM: Yes CVA tenderness Back/Pelvis: GENERAL BACK: Yes CVA tenderness Extremity: COMMON NORMALS: no pedal edema Neuro: SENSORIUM/ORIENTATION: Yes alert Skin: COMMON NORMALS: turgor normal GENERAL SKIN EXAM: turgor normal Course Vital Signs: Vital signs: Vital Signs Pulse Rate 67 02/06/23 01:09 Respiratory Rate 20 H 02/06/23 01:16 Blood Pressure 168/104 02/06/23 01:09 Pulse Oximetry 99 02/06/23 01:16 Oxygen Delivery Me thod Room Air 02/06/23 01:01 MDM - Abdominal Pain Medical Decision Making 62-year-old male patient comes in today for complaints of right flank pain r ating to the groin. Patient has a history of renal calculi. On exam patient has tenderness on percussion of the right CVA. Abdomen soft with normal active bowel sounds. Skin is warm and dry. Differential diagnosis includes but not limited to renal colic, pyelonephritis, UTI, gallbladder disease. CBC and CMP were unremarkable. Lipase was normal. Urinalysis noted no infection. CT of the abdomen pelvis noted a 4+ millimeter calculi in the distal ureter on the right side. Patient's pain was improved with fentanyl and ketorolac. Patient will be continued on hydrocodone and ondansetron for pain and nausea and recommended to follow-up with urologist. Lab Data 02/06/23 01:15 02/06/23 01:15 Labs/Radiology: Laboratory Results WBC 9.7 10^3/uL (4.0-10.0) 02/06/23 01:15 RBC 5.11 10^6/uL (4.1-5.3) 02/06/23 01:15 Hgb 15.7 g/dL (11.7-16.6) 02/06/23 01:15 Hct 45.0 % (42.0-52.0) 02/06/23 01:15 MCV 88.1 fl (80-94) 02/06/23 01:15 MCH 30.7 pg (28.0-34.0) 02/06/23 01:15 MCHC 34.9 g/dL (30.0-36.0) 02/06/23 01:15 RDW 12.1 % (12.1-15.1) 02/06/23 01:15 Plt Count 264 10^3/cmm (130-400) 02/06/23 01:15 MPV 9.2 fL (7.4-10.4) 02/06/23 01:15 Neut % (Auto) 70.1 % 02/06/23 01:15 Lymph % (Auto) 19.3 % 02/06/23 01:15 [place] % (Auto) 6.9 % 02/06/23 01:15 Eos % (Auto) 2.4 % 02/06/23 01:15 Baso % (Auto) 1.0 % 02/06/23 01:15 Neut # (Auto) 6.81 10^3/uL (1.8-7.7) 02/06/23 01:15 Lymph # (Auto) 1.9 10^3/uL (0.8-4.8) 02/06/23 01:15 [place] # (Auto) 0.7 10^3/uL (0.2-0.9) 02/06/23 01:15 Eos # (Auto) 0.2 10^3/uL (0.0-0.8) 02/06/23 01:15 Baso # (Auto) 0.1 10^3/uL (0.0-0.1) 02/06/23 01:15 Nucleated RBC % (auto) 0 % 02/06/23 01:15 Nucleated RBCs # 0.0 /100WBC 02/06/23 01:15 Sodium 138 mmol/L (136-145) 02/06/23 01:15 Potassium 3.7 mmol/L (3.5-5.1) 02/06/23 01:15 Chloride 100 mmol/L (98-107) 02/06/23 01:15 Carbon Dioxide 25 mmol/L (22-29) 02/06/23 01:15 Anion Gap 16.7 (5-19) 02/06/23 01:15 BUN 10 mg/dL (8-23) 02/06/23 01:15 Creatinine 1.0 mg/dL (0.7-1.2) 02/06/23 01:15 GFR Calculation 75.2 mL/min (90-130) L 02/06/23 01:15 Glucose 113 mg/dL (65-115) 02/06/23 01:15 Calculated Osmolality 286 mOsm/kg (285-295) 02/06/23 01:15 Calcium 9.4 mg/dL (8.5-10.5) 02/06/23 01:15 Total Bilirubin 0.3 mg/dL (0.15-1.2) 02/06/23 01:15 AST 23 U/L (0-40) 02/06/23 01:15 ALT 19 U/L (0-41) 02/06/23 01:15 Alkaline Phosphatase 55 U/L (40-130) 02/06/23 01:15 Total Protein 7.6 g/dL (6.6-8.7) 02/06/23 01:15 Albumin 4.6 g/dL (3.5-5.2) 02/06/23 01:15 Globulin 3.0 g/dL (1.3-4.6) 02/06/23 01:15 Lipase 55 U/L (13-60) 02/06/23 01:15 Urine Color Yellow (Yellow) 02/06/23 02:15 Urine Appearance Clear (CLEAR) 02/06/23 02:15 Urine pH 7 (5-7) 02/06/23 02:15 Ur Specific [place] 1.015 (1.005-1.030) 02/06/23 02:15 Urine Protein Neg (Negative) 02/06/23 02:15 Urine Glucose (UA) Norm (Normal) 02/06/23 02:15 Urine Ketones Negative (Negative) 02/06/23 02:15 Urine Blood Neg (Negative) 02/06/23 02:15 Urine Nitrate Negative (Negative) 02/06/23 02:15 Urine Bilirubin Neg (Negative) 02/06/23 02:15 Urine Urobilinogen Neg mg/dL (Negative) 02/06/23 02:15 Ur Leukocyte Esterase Negative (Negative) 02/06/23 02:15 Discharge Plan Discharge Patient Disposition: Home Clinical Impression: Urolithiasis Qualifiers: Urinary calculus location: ureter Qualified Code(s): N20.1 - Calculus of ureter Condition: Stable Prescriptions: New hydrocodone-acetaminophen 5-325 mg tablet 1 tab PO Q4H PRN (Reason: pain (scale score 7-10)) Qty: 12 0RF tamsulosin 0.4 mg capsule 0.4 mg PO DAILY Qty: 10 0RF ondansetron 4 mg tablet,disintegrating 4 mg PO Q8H PRN (Reason: nausea and vomiting) Qty: 7 0RF No Action ascorbic acid (vitamin C) 500 mg tablet 500 mg PO QDAY hydrocodone-acetaminophen 5-325 mg tablet 1 tab PO BID PRN (Reason: Pain) multivitamin Tablet 1 tab PO DAILY Metamucil 3.4 gram/5.4 gram Powder 1 tbsp PO BID tamsulosin 0.4 mg capsule 0.4 mg PO DAILY Qty: 10 0RF ondansetron 4 mg tablet,disintegrating 4 mg PO Q8H PRN (Reason: Nausea) Discharge Orders: Discharge ED (Routine); Ordered 02/06/23 Ordered By: Salty Luna Referrals: Chiara Berrios FNP [Primary Care Provider] - Discharge Diet: Usual diet Discharge Activity: Increase activity as tolerated Patient Instructions: Kidney Stones (ED) Activity Restrictions/Additional Instructions: Take medication as directed. Drink plenty of water and fluids. Activity as tolerated. Follow-up with urologist office. employee services manager will contact you to assist with follow-up appointment. Return to ER for new concerns or worsening symptoms such as high fever, uncontrolled pain, or new concerns. Coding Level of Care Code ED Customer Service Advisor for Isabelle Millan
[2023-02-06 01:01] VITALS: BP 168/104; PULSE 74; RESP 22; O2SAT 99; BMI 30.4
[2023-02-06 01:09] VITALS: BP 168/104; PULSE 67; RESP 15; O2SAT 99
[2023-02-06] MEDS: ondansetron 2 mg/ML SDV 2 mL 4 MG IVP (01:14)
[2023-02-06] MEDS: ketorolac 30 mg/mL INJ 15 MG IVP (01:14)
[2023-02-06 01:16] VITALS: RESP 20; O2SAT 99
[2023-02-06] MEDS: fentaNYL 50 mcg/mL INJ 2mL 100 MCG IVP (01:16)
[2023-02-06 01:24] LABS: Basophils # 0.1 10^3/uL (0.0-0.1); Eosinophils # 0.2 10^3/uL (0.0-0.8); Eosinophils % 2.4 %; Hemoglobin 15.7 g/dL (11.7-16.6); Lymphocytes # 1.9 10^3/uL (0.8-4.8); Lymphocytes % 19.3 %; Mean Corpuscular HGB Conc 34.9 g/dL (30.0-36.0); Mean Corpuscular Hemoglobin 30.7 pg (28.0-34.0); Mean Corpuscular Volume 88.1 fl (80-94); Mean Platelet Volume 9.2 fL (7.4-10.4); Monocytes # 0.7 10^3/uL (0.2-0.9); Monocytes % 6.9 %; Neutrophils # 6.81 10^3/uL (1.8-7.7); Neutrophils % 70.1 %; Nucleated Red Blood Cells % 0 %; Platelet Count 264 10^3/cmm (130-400); Red Blood Count 5.11 10^6/uL (4.1-5.3); Red Cell Distribution Width 12.1 % (12.1-15.1); White Blood Count 9.7 10^3/uL (4.0-10.0)
[2023-02-06 01:47] LABS: Alanine Aminotransferase 19 U/L (0-41); Albumin Level 4.6 g/dL (3.5-5.2); Alkaline Phosphatase 55 U/L (40-130); Anion Gap 16.7 (5-19); Aspartate Amino Transferase 23 U/L (0-40); Blood Urea Nitrogen 10 mg/dL (8-23); Calcium 9.4 mg/dL (8.5-10.5); Carbon Dioxide 25 mmol/L (22-29); Chloride 100 mmol/L (98-107); Glomerular Filtration Rate 75.2 mL/min (90-130); Glucose 113 mg/dL (65-115); Lipase 55 U/L (13-60); Osmolality Calculated 286 mOsm/kg (285-295); Potassium 3.7 mmol/L (3.5-5.1); Sodium 138 mmol/L (136-145); Total Bilirubin 0.3 mg/dL (0.15-1.2); Total Protein 7.6 g/dL (6.6-8.7)
[2023-02-06 02:21] LABS: Add Urine Microscopic? NO; Charge for UA Resulting for Rev
[2023-02-06 02:23] LABS: Bilirubin Urine Neg (Negative); Blood Urine Neg (Negative); Glucose Urine UA Norm (Normal); Ketones Urine Negative (Negative); Leukocyte Esterase Urine Negative (Negative); Nitrate Urine Negative (Negative); Protein Urine Neg (Negative); Specific Gravity, Urine 1.015 (1.005-1.030); Urine Appearance Clear (CLEAR); Urine Color Yellow (Yellow); Urobilinogen Urine Neg (Negative); pH Urine 7 (5-7)
[2023-02-06] MEDS: HYDROcodone-acetaminophen 5-325 mg Tablet 2 TAB PO (02:37)
[2023-02-06] MEDS: ondansetron 4 MG Tablet PO (02:37)
[2023-02-06 02:42] VITALS: BP 143/96; PULSE 84; RESP 16; O2SAT 98
--- NOTE | 2023-02-06 11:40 | PC.SOCIAL ---
Spoke with patient about urology referral, he wants to speak with his and will call CM back with where he wants referral sent.
== END 2023-02-06 02:43 | disposition home or self-care (01) ==
PROVIDERS: Emergency Provider Nurse Practitioner Family; PCP Nurse Practitioner
DX: N20.1 Calculus of ureter (principal); Z87.891 Personal history of nicotine dependence
CPT/HCPCS: 74176; 80053; 81003; 83690; 85025; 96374; 96375; 99285; J1885; J2405; J3010; Q0162

== ENCOUNTER → 2023-03-12 08:29 | Outpatient (BNVA) | payer OTHER, SELFPAY | PROVIDERS: PCP Nurse Practitioner; Visit Provider Nurse Practitioner Family | DX: L02.91 Cutaneous abscess, unspecified (principal) | CPT/HCPCS: 87070; 87077; 87184 ==

== ENCOUNTER → 2023-12-31 15:39 | Outpatient (BNVA) | payer MEDICARE, SELFPAY | PROVIDERS: PCP Nurse Practitioner; Visit Provider Nurse Practitioner Family | DX: E55.9 Vitamin D deficiency, unspecified; R51.9 Headache, unspecified; R53.83 Other fatigue; Z79.899 Other long term (current) drug therapy; D64.9 Anemia, unspecified; Z12.5 Encounter for screening for malignant neoplasm of prostate | CPT/HCPCS: 80053; 80061; 81003; 82306; 82607; 82728; 82746; 83036; 83550; 84443; 85025; G0103 ==

== ENCOUNTER → 2024-01-18 08:18 | Outpatient (BNVA) | payer MEDICARE, SELFPAY | PROVIDERS: PCP Nurse Practitioner; Visit Provider Nurse Practitioner Family | DX: N41.9 Inflammatory disease of prostate, unspecified (principal); R97.20 Elevated prostate specific antigen [PSA]; Z12.5 Encounter for screening for malignant neoplasm of prostate; R31.9 Hematuria, unspecified; N41.0 Acute prostatitis | CPT/HCPCS: 81003; 87086; G0103 ==

== ENCOUNTER → 2024-02-04 07:53 | Outpatient (BNVA) | payer MEDICARE, SELFPAY | PROVIDERS: PCP Nurse Practitioner; Visit Provider Nurse Practitioner Family | DX: D17.24 Benign lipomatous neoplasm of skin and subcutaneous tissue of left leg (principal); L57.0 Actinic keratosis; S60.00XA Contusion of unspecified finger without damage to nail, initial encounter; X58.XXXA Exposure to other specified factors, initial encounter; Z80.8 Family history of malignant neoplasm of other organs or systems; L73.8 Other specified follicular disorders; D22.5 Melanocytic nevi of trunk | CPT/HCPCS: 17000; 99213 ==

== ENCOUNTER → 2024-02-20 09:03 | Outpatient (BNVA) | payer MEDICARE, SELFPAY | PROVIDERS: PCP Nurse Practitioner; Visit Provider Nurse Practitioner Family | DX: R97.20 Elevated prostate specific antigen [PSA] (principal); E55.9 Vitamin D deficiency, unspecified; R53.83 Other fatigue; Z79.899 Other long term (current) drug therapy; Z12.5 Encounter for screening for malignant neoplasm of prostate | CPT/HCPCS: 81003; 82306; 82607; 85025; G0103 ==

== ENCOUNTER → 2024-05-12 08:31 | Outpatient (BNVA) | payer MEDICARE, SELFPAY | PROVIDERS: PCP Nurse Practitioner; Visit Provider Nurse Practitioner Family | DX: Z12.5 Encounter for screening for malignant neoplasm of prostate (principal) | CPT/HCPCS: G0103 ==

== ENCOUNTER → 2024-09-03 08:26 | Outpatient (BNVA) | payer MEDICARE, SELFPAY | PROVIDERS: PCP Nurse Practitioner Family; Visit Provider Nurse Practitioner Family | DX: R97.20 Elevated prostate specific antigen [PSA] (principal) | CPT/HCPCS: 84153 ==

== ENCOUNTER → 2025-02-02 08:09 | Outpatient (BNVA) | payer MEDICARE, SELFPAY | PROVIDERS: PCP Nurse Practitioner Family; Visit Provider Nurse Practitioner Family | DX: D17.24 Benign lipomatous neoplasm of skin and subcutaneous tissue of left leg (principal); S40.911A Unspecified superficial injury of right shoulder, initial encounter; X58.XXXA Exposure to other specified factors, initial encounter; D22.72 Melanocytic nevi of left lower limb, including hip; L82.1 Other seborrheic keratosis; Z80.8 Family history of malignant neoplasm of other organs or systems | CPT/HCPCS: 99213 ==

== ENCOUNTER → 2025-05-26 09:45 | Outpatient (BNVA) | payer MEDICARE, SELFPAY | PROVIDERS: PCP Nurse Practitioner Family; Visit Provider Nurse Practitioner Family | DX: C61 Malignant neoplasm of prostate (principal); Z79.899 Other long term (current) drug therapy | CPT/HCPCS: 80053; 80061; 81003; 82306; 83036; 84153; 84443; 85025 ==

== ENCOUNTER → 2025-05-29 11:00 | Outpatient (BNVA) | payer MEDICARE, SELFPAY | PROVIDERS: PCP Nurse Practitioner Family; Visit Provider Nurse Practitioner Family | DX: C61 Malignant neoplasm of prostate (principal); E55.9 Vitamin D deficiency, unspecified; R05.8 Other specified cough; Z79.899 Other long term (current) drug therapy | CPT/HCPCS: 87070; 87205 ==

== ENCOUNTER → 2025-07-27 08:29 | Outpatient (BNVA) | payer MEDICARE, SELFPAY | PROVIDERS: PCP Nurse Practitioner Family; Visit Provider Nurse Practitioner Family | DX: Z79.899 Other long term (current) drug therapy (principal); E55.9 Vitamin D deficiency, unspecified; C61 Malignant neoplasm of prostate | CPT/HCPCS: 80053; 82306; 84153; 85025 ==